=== PATIENT | male | born 1980 | race Caucasian/White ===

== ENCOUNTER 2022-08-13 20:26 | Emergency (ER) | payer BC ==
[2022-08-13 22:21] LABS: CARBON DIOXIDE,CO2 27.3 mmol/L (21.0-32.0); POTASSIUM,K 3.4 mmol/L (3.5-5.1)
[2022-08-14 01:20] LABS: C. TRACHOMATIS BY PCR NOT DETECTED; N. GONORRHOEAE BY PCR NOT DETECTED
== END 2022-08-14 01:39 | disposition home or self-care (01) ==
LOC: MW.ED 20:26
DX: I86.1 Scrotal varices (principal)
CPT/HCPCS: 36415; 76870; 76870-26; 80053; 81003; 85025; 87491; 87591; 93976; 99283; 99284